=== PATIENT | female | born 1945 ===

== ENCOUNTER → 2022-09-10 13:07 | Outpatient (CLI) | payer MEDICARE, OTHER, SELFPAY ==
--- NOTE | 2022-09-10 13:13 | DI.RAD.S_ITS ---
PROCEDURE: XR LUMBAR SPINE MIN 4V INDICATIONS: LOW BACK PAIN TECHNIQUE: 4 views of the lumbar spine were acquired, including bilateral oblique views. COMPARISON: None. FINDINGS: Bones: 5 nonrib-bearing vertebrae are present. There is severe rightward curvature of thoracolumbar spine with mild compensatory levoscoliosis of lower lumbar spine with apex at L3-4 level. Moderate to severe degenerative disc disease throughout lumbar spine is seen. No definite acute vertebral body compression fractures. No suspicious bony lesions. Soft tissues: Overlying bowel gas pattern is normal. No suspicious soft tissue calcifications. Oblique images: No pars defects. IMPRESSION: Severe scoliosis as above. No definite acute vertebral body compression fracture. Degenerative disc disease throughout visualized thoracic spine and lumbar spine. No gross pars defects. Dictated by: Carlos Russell M.D. on 09/10/2022 at 16:11 Approved by: Carlos Russell M.D. on 09/10/2022 at 16:13
== END ==
PROVIDERS: Referring Provider Anesthesiology; Visit Provider Anesthesiology
DX: M51.16 Intervertebral disc disorders with radiculopathy, lumbar region (principal); M47.26 Other spondylosis with radiculopathy, lumbar region; M51.34 Other intervertebral disc degeneration, thoracic region; M41.25 Other idiopathic scoliosis, thoracolumbar region; M54.50 Low back pain, unspecified
CPT/HCPCS: 72110; 99214